=== PATIENT | female | born 2000 | race African-American/Black ===

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

== ENCOUNTER 2021-02-10 12:06 | Emergency (ER) | payer OTHER | END 2021-02-10 12:36 | LOC: EEVIPCON 12:06 → ERS 12:06 | DX: R11.10 Vomiting, unspecified (principal) | CPT/HCPCS: 99283 ==

== ENCOUNTER 2024-05-11 20:54 | Emergency (ER) | payer SELFPAY ==
[2024-05-11] MEDS ORDERED: Lidocaine 1% w/Epinephrine 1:100K 20 ML VIAL ONE (21:30)
== END 2024-05-11 21:52 | disposition home or self-care (01) ==
LOC: ERS 20:54
DX: L02.31 Cutaneous abscess of buttock (principal)
CPT/HCPCS: 10060

== ENCOUNTER 2024-06-04 09:48 | Emergency (ER) | payer SELFPAY ==
[2024-06-04] MEDS ORDERED: Metoclopramide HCl 10 MG (2 mL) VIAL ONE (10:37)
[2024-06-04] MEDS ORDERED: diphenhydrAMINE 50 MG/ML VIAL ONE (10:37)
[2024-06-04 12:24] LABS: #Basophils 0.03 10x3/uL (0.0-0.2); %Basophils 0.3 % (0.0-1.0); %Eosinophils 0.5 % (0.0-10.0); %Lymphocytes 42.4 % (21.0-51.0); %Monocytes 6.5 % (0.0-10.0); %Neutrophils 50.1 % (42.0-75.0); Hematocrit 38.4 % (36.0-47.0); Hemoglobin 12.5 g/dL (12.0-16.0); Mean Corpuscular HGB CONC 32.6 g/dL (32.0-36.0); Mean Corpuscular Hemoglobin 30.6 pg (27.0-31.0); Mean Corpuscular Volume 93.9 fL (78.0-98.0); Mean Platelet Volume 9.4 fL (7.4-10.4); Platelet Count 324 10x3/uL (130-400); Red Blood Cell (RBC) Count 4.09 mill/uL (4.20-5.40)
[2024-06-04 12:43] LABS: ALT (SGPT) 33 U/L (8-55); AST (SGOT) 28 U/L (5-34); Albumin 3.8 g/dL (3.5-5.0); Alkaline Phosphatase 86 U/L (40-110); Anion Gap 16 mmol/L (10-20); BUN (Urea Nitrogen) 8 mg/dL (7.0-18.7); Bilirubin, Total 0.6 mg/dL (0.2-1.2); Calc. Creatinine Clearance 0 mL/min (70-130); Calcium 9.1 mg/dL (7.8-10.44); Carbon Dioxide 18 mmol/L (22-29); Chloride 108 mmol/L (98-107); Estimated GFR 104; Globulin 3.4 g/dL (2.4-3.5); Glucose 86 mg/dL (70-105); Protein, Total 7.2 g/dL (6.0-8.3); Sodium 138 mmol/L (136-145)
[2024-06-04 12:49] LABS: Troponin I Less than 0.010 ng/mL (< 0.028)
[2024-06-04 13:10] LABS: Bacteria/HPF None Seen HPF (None Seen); Bilirubin Negative (Negative); Blood, Urine Trace (Negative); CAUTI Indications for Culture Dysuria,urgency,freq; Clarity Clear (Clear); Glucose, Urine (Dipstick) Normal (Negative); Ketone, Urine Negative (Negative); Leukocyte Negative Leu/uL (Negative); Nitrite Negative (Negative); Protein, Urine (Dipstick) Negative (Neg-Trace); RBC/HPF 0-3 HPF (0-3); Specific Gravity, Urine 1.025 (1.002-1.036); Urobilinogen Normal mg/dL (Less than 2); WBC/HPF 0-3 HPF (0-3); pH, Urine 5.5 (5.0-9.0)
[2024-06-04 13:12] LABS: Urine Culture Reflex No No
== END 2024-06-04 14:06 | disposition home or self-care (01) ==
LOC: ERS 09:48
DX: O99.891 Other specified diseases and conditions complicating pregnancy (principal); R55 Syncope and collapse; R51.9 Headache, unspecified; R10.9 Unspecified abdominal pain; Z3A.08 8 weeks gestation of pregnancy
CPT/HCPCS: 70450; 76801; 80053; 81001; 84484; 84702; 85025; 93005; 96361; 96374; 96375; J1200; J2765

== ENCOUNTER 2025-04-26 21:05 | Emergency (ER) | payer OTHER ==
[2025-04-26] MEDS ORDERED: Acetaminophen 325 MG TAB ONE (21:51)
== END 2025-04-26 22:59 | disposition home or self-care (01) ==
LOC: ERS 21:05
DX: U07.1 COVID-19 (principal)
CPT/HCPCS: 87428; 99283